=== PATIENT | female | born 1950 | race Caucasian/White ===

== ENCOUNTER 2021-07-09 20:57 | Observation (INO) | payer MEDICARE ==
[~2021-07-09] VITALS: Ht 157.5 cm; Wt 118.5 kg
[~2021-07-09 20:57] MED LIST: ASPIRIN CHEWABL81 MG PO; BREO ELLIPTA 11 EACH INH; BROVANA15 MCG/2 M INH; COLCHICINE 0.60.6 MG PO; CRESTOR20 MG PO; DETROL LA4 MG PO; FLONASE 0.05% N16 GM; IBUPROFEN800 MG PO; LASIX20 MG PO; SINGULAIR10 MG PO; SYMBICORT 80-10.2 GM INH; VENTOLIN HFA 66.7 GM INH
[2021-07-09 23:26] LABS: HEMOGLOBIN 11.7 gm/dl (12.3-15.3); RED BLOOD COUNT 4.05 M/UL (4.00-5.10); WHITE BLOOD COUNT 11.8 K/UL (4.5-11.0)
[2021-07-10] MEDS ORDERED: NOVOLOG MI100 UNIT/1 SC
[2021-07-10] MEDS ORDERED: OMNICEF 300 MG300 MG PO (05:26)
[2021-07-10] MEDS ORDERED: ZOFRAN4 MG PO (05:26)
[2021-07-10] MEDS ORDERED: DIFLUCAN150 MG PO (07:27)
[2021-07-10] MEDS ORDERED: ELIQUIS5 MG PO (11:21)
[2021-07-10] MEDS ORDERED: TOPROL XL25 MG PO (11:25)
[2021-07-10] MEDS ORDERED: DITROPAN 5 MG TA5 MG PO (12:04)
[2021-07-10] MEDS ORDERED: TYLENOL EXTRA500 MG PO (12:05)
[2021-07-10] MEDS ORDERED: COZAAR100 MG PO (23:56)
[2021-07-11 06:31] LABS: HEMOGLOBIN 9.7 gm/dl (12.3-15.3); RED BLOOD COUNT 3.41 M/UL (4.00-5.10)
[2021-07-12 07:13] LABS: RED BLOOD COUNT 3.48 M/UL (4.00-5.10); WHITE BLOOD COUNT 7.1 K/UL (4.5-11.0)
[2021-07-12] MEDS ORDERED: CEFUROXIME250 MG PO (09:43)
--- NOTE | 2021-07-12 14:56 | NUR ---
report given to admitting nurseManoj.
== END 2021-07-12 18:52 | disposition home or self-care (01) ==
LOC: ER1 20:57 → M/S 07-10 10:46 → CDU 07-10 10:46 → M/S 07-10 22:17
PROVIDERS: Physician Assistant; Physician Assistant Medical; ADMIT Internal Medicine
DX: N17.9 Acute kidney failure, unspecified (principal); I12.9 Hypertensive chronic kidney disease with stage 1 through stage 4 chronic kidney disease, or unspecified chronic kidney disease; E11.22 Type 2 diabetes mellitus with diabetic chronic kidney disease; N18.30 Chronic kidney disease, stage 3 unspecified; N30.00 Acute cystitis without hematuria; E86.0 Dehydration; I48.0 Paroxysmal atrial fibrillation; E11.65 Type 2 diabetes mellitus with hyperglycemia; E11.40 Type 2 diabetes mellitus with diabetic neuropathy, unspecified; E78.5 Hyperlipidemia, unspecified; J45.909 Unspecified asthma, uncomplicated; E66.01 Morbid (severe) obesity due to excess calories; R53.81 Other malaise; E87.6 Hypokalemia; Z66 Do not resuscitate; Z68.41 Body mass index [BMI] 40.0-44.9, adult; Z88.1 Allergy status to other antibiotic agents; Z79.01 Long term (current) use of anticoagulants; Z79.4 Long term (current) use of insulin; Z79.899 Other long term (current) drug therapy; Z20.822 Contact with and (suspected) exposure to COVID-19
CPT/HCPCS: 71045; 80048; 80053; 81001; 82550; 82553; 82962; 83735; 83874; 84484; 85025; 85027; 87077; 87086; 87186; 96374; 96376; 97116-GP-CQ; 97162; 97530-GP-CQ; 99284; G0378; J0696; U0002

== ENCOUNTER 2021-07-28 18:02 | Inpatient (IN) | payer MEDICARE ==
[~2021-07-28] VITALS: Ht 157.5 cm; Wt 107.0 kg
[~2021-07-28 18:02] MED LIST changes: +CEFUROXIME250 MG PO; +COZAAR100 MG PO; -CRESTOR20 MG PO; +DIFLUCAN150 MG PO; +DITROPAN 5 MG TA5 MG PO; +ELIQUIS5 MG PO; +LEVOFLOXACIN500 MG PO; +NOVOLOG MI100 UNIT/1 SC; +OMNICEF 300 MG300 MG PO; +TOPROL XL25 MG PO; +TYLENOL EXTRA500 MG PO; +ZOFRAN4 MG PO
[2021-07-28 18:44] LABS: HEMOGLOBIN 11.3 gm/dl (12.3-15.3); RED BLOOD COUNT 4.14 M/UL (4.00-5.10); WHITE BLOOD COUNT 8.6 K/UL (4.5-11.0)
[2021-07-28 19:04] LABS: BUN/CREATININE RATIO 16 (0-10)
[2021-07-29 06:29] LABS: HEMOGLOBIN 10.4 gm/dl (12.3-15.3); RED BLOOD COUNT 3.82 M/UL (4.00-5.10)
[2021-07-29] MEDS ORDERED: VENTOLIN HFA 66.7 GM INH (11:03)
[2021-07-29] MEDS ORDERED: CRESTOR20 MG PO (23:58)
[2021-07-30 04:16] LABS: HEMOGLOBIN 10.5 gm/dl (12.3-15.3); RED BLOOD COUNT 3.79 M/UL (4.00-5.10); WHITE BLOOD COUNT 5.5 K/UL (4.5-11.0)
[2021-07-31 06:24] LABS: HEMOGLOBIN 9.6 gm/dl (12.3-15.3); RED BLOOD COUNT 3.51 M/UL (4.00-5.10); WHITE BLOOD COUNT 5.2 K/UL (4.5-11.0)
[2021-08-01 07:10] LABS: HEMOGLOBIN 10.3 gm/dl (12.3-15.3); RED BLOOD COUNT 3.78 M/UL (4.00-5.10); WHITE BLOOD COUNT 5.1 K/UL (4.5-11.0)
[2021-08-02 08:37] LABS: HEMOGLOBIN 10.2 gm/dl (12.3-15.3); RED BLOOD COUNT 3.74 M/UL (4.00-5.10); WHITE BLOOD COUNT 5.4 K/UL (4.5-11.0)
[2021-08-03 06:43] LABS: HEMOGLOBIN 10.4 gm/dl (12.3-15.3); RED BLOOD COUNT 3.72 M/UL (4.00-5.10); WHITE BLOOD COUNT 5.1 K/UL (4.5-11.0)
[2021-08-03] MEDS ORDERED: MEGACE 400400 MG/10 PO (11:22)
[2021-08-03] MEDS ORDERED: PROTONIX 40 MG40 M1 PO (11:22)
[2021-08-03] MEDS ORDERED: NYSTOP60 GM TOP (11:22)
[2021-08-03] MEDS ORDERED: NOVOLOG MI100 UNIT/1 SC (11:22)
== END 2021-08-03 19:07 | disposition home health service (06) | DRG 674 ==
LOC: ER1 18:02 → M/S 23:51 → CDU 23:51 → M/S 07-30 04:50
PROVIDERS: Internal Medicine; Internal Medicine Gastroenterology; Physician Assistant Medical; ADMIT Internal Medicine
PROC: 07BC3ZX Excision of Pelvis Lymphatic, Percutaneous Approach, Diagnostic (ICD-10-PCS; 2021-08-02)
PROC: 0DB78ZX Excision of Stomach, Pylorus, Via Natural or Artificial Opening Endoscopic, Diagnostic (ICD-10-PCS; principal; 2021-08-02 09:00)
DX: N13.6 Pyonephrosis (principal); Z68.41 Body mass index [BMI] 40.0-44.9, adult; E46 Unspecified protein-calorie malnutrition; K22.4 Dyskinesia of esophagus; E11.22 Type 2 diabetes mellitus with diabetic chronic kidney disease; N17.9 Acute kidney failure, unspecified; Z20.822 Contact with and (suspected) exposure to COVID-19; I48.0 Paroxysmal atrial fibrillation; D63.1 Anemia in chronic kidney disease; K31.819 Angiodysplasia of stomach and duodenum without bleeding; E78.5 Hyperlipidemia, unspecified; K29.80 Duodenitis without bleeding; K29.70 Gastritis, unspecified, without bleeding; I12.9 Hypertensive chronic kidney disease with stage 1 through stage 4 chronic kidney disease, or unspecified chronic kidney disease; N18.30 Chronic kidney disease, stage 3 unspecified; K59.00 Constipation, unspecified; B95.2 Enterococcus as the cause of diseases classified elsewhere; E66.01 Morbid (severe) obesity due to excess calories; E11.40 Type 2 diabetes mellitus with diabetic neuropathy, unspecified; J45.909 Unspecified asthma, uncomplicated; B96.20 Unspecified Escherichia coli [E. coli] as the cause of diseases classified elsewhere; Z79.01 Long term (current) use of anticoagulants; Z80.8 Family history of malignant neoplasm of other organs or systems; Z90.710 Acquired absence of both cervix and uterus; Z90.49 Acquired absence of other specified parts of digestive tract; Z98.51 Tubal ligation status; Z98.890 Other specified postprocedural states; Z88.8 Allergy status to other drugs, medicaments and biological substances; Z82.49 Family history of ischemic heart disease and other diseases of the circulatory system; Z83.3 Family history of diabetes mellitus
CPT/HCPCS: 36415; 71045; 71250; 77012; 80048; 80053; 81001; 82962; 83605; 83690; 84132; 84484; 85025; 85027; 85610; 85730; 86304; 87040; 87086; 92610; 93005; 96374; 96375; 97110-GP-CQ; 97116-GP-CQ; 97161; 97530-GP-CQ; 99285; C9113; J1335; J1956; J2405; J2704; J7030; U0002

== ENCOUNTER 2021-09-27 11:01 | Inpatient (IN) | payer MEDICARE ==
[~2021-09-27] VITALS: Ht 157.5 cm; Wt 93.0 kg
[~2021-09-27 11:01] MED LIST changes: +CRESTOR20 MG PO; +MEGACE 400400 MG/10 PO; +NYSTOP60 GM TOP; +PROTONIX 40 MG40 M1 PO
[2021-09-27 13:11] LABS: HEMOGLOBIN 12.6 gm/dl (12.3-15.3); RED BLOOD COUNT 4.34 M/UL (4.00-5.10); WHITE BLOOD COUNT 9.3 K/UL (4.5-11.0)
[2021-09-27 13:44] LABS: BUN/CREATININE RATIO 27 (0-10)
[2021-09-27] MEDS ORDERED: NOVOLOG MI100 UNIT/2 SC (16:53)
[2021-09-27] MEDS ORDERED: PROTONIX 40 MG40 M1 PO (16:54)
[2021-09-27] MEDS ORDERED: ONDANSETRON HCL8 MG PO (16:55)
[2021-09-27] MEDS ORDERED: MEGACE TAB 40 M40 MG PO (16:55)
[2021-09-27] MEDS ORDERED: FLUCONAZOLE100 MG PO (16:56)
[2021-09-27] MEDS ORDERED: OXYBUTYNIN CHLOR5 MG PO (16:57)
[2021-09-27] MEDS ORDERED: CEFDINIR300 MG PO (16:57)
[2021-09-28 06:35] LABS: HEMOGLOBIN 11.1 gm/dl (12.3-15.3)
[2021-09-28 06:37] LABS: RED BLOOD COUNT 3.89 M/UL (4.00-5.10); WHITE BLOOD COUNT 6.1 K/UL (4.5-11.0)
[2021-09-28] MEDS ORDERED: PROAIR HFA8.5 GM INH (11:03)
[2021-09-28] MEDS ORDERED: MAGIC MOUTHWASH PO (15:08)
[2021-09-28] MEDS ORDERED: HYDROCODON-ACE1 EAC4 PO (15:10)
[2021-09-28] MEDS ORDERED: REMERON 15 MG T15 MG PO (15:35)
--- NOTE | 2021-09-28 15:54 | NUR ---
REPORT CALLED TO ELIZABETH AT [facility].
== END 2021-09-28 16:02 | DRG 683 ==
LOC: ER1 11:01 → CDU 16:27 → M/S 20:51
PROVIDERS: Physician Assistant; Physician Assistant Medical; ADMIT Internal Medicine
DX: N17.9 Acute kidney failure, unspecified (principal); E87.1 Hypo-osmolality and hyponatremia; E44.0 Moderate protein-calorie malnutrition; N30.00 Acute cystitis without hematuria; Z16.12 Extended spectrum beta lactamase (ESBL) resistance; Z20.822 Contact with and (suspected) exposure to COVID-19; N13.6 Pyonephrosis; I48.0 Paroxysmal atrial fibrillation; E66.9 Obesity, unspecified; E86.0 Dehydration; E78.5 Hyperlipidemia, unspecified; J45.909 Unspecified asthma, uncomplicated; E11.42 Type 2 diabetes mellitus with diabetic polyneuropathy; R62.7 Adult failure to thrive; I12.9 Hypertensive chronic kidney disease with stage 1 through stage 4 chronic kidney disease, or unspecified chronic kidney disease; E11.22 Type 2 diabetes mellitus with diabetic chronic kidney disease; B96.29 Other Escherichia coli [E. coli] as the cause of diseases classified elsewhere; N18.30 Chronic kidney disease, stage 3 unspecified; E87.5 Hyperkalemia; E11.43 Type 2 diabetes mellitus with diabetic autonomic (poly)neuropathy; K31.84 Gastroparesis; E11.65 Type 2 diabetes mellitus with hyperglycemia; Z66 Do not resuscitate; Z90.49 Acquired absence of other specified parts of digestive tract; Z90.710 Acquired absence of both cervix and uterus; Z96.0 Presence of urogenital implants; Z98.890 Other specified postprocedural states; Z98.51 Tubal ligation status; Z82.49 Family history of ischemic heart disease and other diseases of the circulatory system; Z79.01 Long term (current) use of anticoagulants; Z85.41 Personal history of malignant neoplasm of cervix uteri; Z98.49 Cataract extraction status, unspecified eye; Z79.899 Other long term (current) drug therapy; Z88.8 Allergy status to other drugs, medicaments and biological substances; Z80.0 Family history of malignant neoplasm of digestive organs; Z80.1 Family history of malignant neoplasm of trachea, bronchus and lung; Z68.37 Body mass index [BMI] 37.0-37.9, adult
CPT/HCPCS: 36415; 80048; 80053; 81001; 82550; 82553; 82962; 83605; 83690; 83735; 83874; 84484; 85025; 85027; 87086; 96374; 96375; 99285; J0696; J2185; J2405; U0002

== ENCOUNTER → 2021-10-12 | Outpatient (CLI) | payer MEDICARE ==
[~2021-10-12] MED LIST changes: +CEFDINIR300 MG PO; +FLUCONAZOLE100 MG PO; +HYDROCODON-ACE1 EAC4 PO; +MAGIC MOUTHWASH PO; +MEGACE TAB 40 M40 MG PO; +NOVOLOG MI100 UNIT/2 SC; +ONDANSETRON HCL8 MG PO; +OXYBUTYNIN CHLOR5 MG PO; +PROAIR HFA8.5 GM INH; +REMERON 15 MG T15 MG PO
== END ==
LOC: LAB 18:09
DX: I12.9 Hypertensive chronic kidney disease with stage 1 through stage 4 chronic kidney disease, or unspecified chronic kidney disease (principal); E08.22 Diabetes mellitus due to underlying condition with diabetic chronic kidney disease; N18.9 Chronic kidney disease, unspecified
CPT/HCPCS: 81001